=== PATIENT | male | born 1955 | race Caucasian/White ===

== ENCOUNTER → 2017-10-20 08:38 | Outpatient (CLI) | payer BC, SELFPAY ==
--- NOTE | 2017-10-20 | DI.ECHO.S_ITS ---
[place] [facility]---------+ [facility] +---------+ : : [address] : [address] : : : : [id number] : : : : Phone: [phone]---------+ Echocardiogram Report + + :Name: MANFRED OLEARY Study Date: 10/20/2017 Height: 65 in : :[facility] Weight: 190 lb : : Gender: Male BSA: 1.9 m2 : :: 1955 Age: 62 yrs BP: 110/82 mmHg: :Reason For Study: Atrial fibrillation : : Performed By: Dina Tejada : :Referring: MAYDA MAURICE : + + Interpretation Summary The left ventricle is normal in size, wall thickness, and systolic function without any focal wall motion abnormalities. The ejection fraction is estimated to be 55-60%. VSD is noted and was visualized on prior LEANA. Diastolic function could not be accurately assessed due to atrial fibrillation. The right ventricle grossly appears normal in size with probable normal systolic function. The right ventricular systolic pressure is estimated at 37 mmHg assuming a right atrial pressure of 3 mm Hg. The left atrium is severely dilated. The right atrium is moderate to severely dilated. A patent foramen ovale is present. Doppler evidence suggests a bidirectional interatrial shunt. Small nodule noted on the anteior leaflet which was noted on prior LEANA on 11/27/2016. There is flattening of MV but no obvious MVP. There is moderate mitral regurgitation. There has been no significant change since the previous study. There is no other significant valvular heart disease. The ascending aorta is mildly enlarged. Procedure: A two-dimensional transthoracic echocardiogram with color flow and Doppler was performed. The study quality was technically good. Comparison is made with the echocardiogram of 11-28-16. The patient was in atrial fibrillation with heart rates between 80-96 bpm during the exam. Left Ventricle: The left ventricle is normal in size, wall thickness, and systolic function without any focal wall motion abnormalities. VSD is noted and was visualized on prior LEANA. The ejection fraction is estimated to be 55- 60%. Diastolic function could not be accurately assessed due to atrial fibrillation. Right Ventricle: The right ventricle grossly appears normal in size with probable normal systolic function. Atria: The left atrium is severely dilated. The right atrium is moderate to severely dilated. A patent foramen ovale is present. Doppler evidence suggests a bidirectional interatrial shunt. Mitral Valve: The mitral valve leaflets appear moderately thickened, but open well. The mitral valve leaflets are slightly calcified. Small nodule noted on the anteior leaflet which was noted on prior LEANA on 11/27/2016. There is flattening of MV but no obvious MVP. There is moderate mitral regurgitation. There has been no significant change since the previous study. Aortic Valve: The aortic valve is trileaflet. The aortic valve opens well. There is mild aortic valve sclerosis. There is trace aortic regurgitation. Tricuspid Valve: The tricuspid valve leaflets are thin and pliable. There is mild tricuspid regurgitation. The right ventricular systolic pressure is estimated at 37 mmHg assuming a right atrial pressure of 3 mm Hg. Pulmonic Valve: There is mild thickening of the pulmonic valve. There is mild pulmonic regurgitation. There is no other significant valvular heart disease. Great Vessels: The aortic root is normal size. The ascending aorta is mildly enlarged. The IVC is of normal diameter and collapses greater than 50% with a sniff. This suggests a low right atrial pressure of 3 mm Hg. Pericardium/ Pleura There is no pericardial effusion. There is no pleural effusion. MMode/2D Measurements & Calculations LVIDd: 4.8 cm Ao root diam: 3.7 cm LVIDs: 3.0 cm Aortic Jxn: 3.1 cm FS: 37.1 % asc Aorta Diam: 3.6 cm EPSS: 0.33 cm Ao Arch Diam (Prox Trans): 3.1 cm IVSd: 0.84 cm LVPWd: 0.91 cm LV rico. diameter/BSA (cm/m^2): 2.5 LV sys. diameter/BSA (cm/m^2): 1.6 LA dimension: 6.1 cm RA long axis: 6.3 cm LA A2 area: 35.2 cm2 RA area: 26.7 cm2 LA A4 area: 33.3 cm2 RA vol: 96.0 ml LA length (vol): 7.2 cm RA : 49.6 ml/m2 LA vol: 137.4 ml IVC diam: 2.1 cm LA vol index: 71.0 ml/m2 RVDd major: 6.6 cm RVD1 (basal): 3.2 cm RVD2 (mid): 2.6 cm Doppler Measurements & Calculations Ao V2 max: 129.5 cm/sec LVOT Max Raffaele: 81.3 cm/sec Ao V2 mean: 76.6 cm/sec LV V1 max P.6 mmHg Ao max P.7 mmHg LV V1 VTI: 14.2 cm Ao mean P.9 mmHg sev ratio: 0.65 Ao V2 VTI: 21.7 cm MV P1/2t: 56.4 msec TR max raffaele: 291.4 cm/sec MR ERO: 0.17 cm2 TR max P.0 mmHg PA V2 max: 75.7 cm/sec PA V2 mean: 50.3 cm/sec PA mean P.2 mmHg PA Accel Time: 0.12 sec MV V2 mean: 54.6 cm/sec MV P1/2t max raffaele: 124.2 cm/sec MV mean P.8 mmHg MVA(P1/2t): 3.9 cm2 MV V2 VTI: 20.0 cm MR flow rate: 91.6 cm3/sec MR PISA radius: 0.62 cm Reading Physician:PM
== END ==
PROVIDERS: Visit Provider Internal Medicine Cardiovascular Disease
DX: I48.91 Unspecified atrial fibrillation (principal)
CPT/HCPCS: 93306